=== PATIENT | male | born 1980 | race Caucasian/White ===

== ENCOUNTER 2017-10-01 07:58 | Day surgery (SDC) | payer OTHER ==
[~2017-10-01 07:58] MED LIST: Buffered Lidocaine 0.9% SYRIN* 5 ML/SYR SYRINGE INTRADERM ONE; Dexamethasone IV* 4 MG/ML 1 ML (4 MG) IV SLOW PU ONE; Famotidine TAB* 20 MG PO ONE
[2017-10-01] MEDS ORDERED: Dexamethasone IV* 4 MG/ML 1 ML (4 MG) ONE (08:21)
[2017-10-01] MEDS ORDERED: Famotidine TAB* 20 MG ONE (08:21)
[2017-10-01] MEDS ORDERED: Buffered Lidocaine 0.9% SYRIN* 5 ML/SYR SYRINGE ONE (08:21)
[2017-10-01] MEDS ORDERED: fentaNYL* 50 MCG/ML 2 ML VIAL (100 MCG VIAL) ONE ×3 (10:04→11:15)
[2017-10-01] MEDS ORDERED: Midazolam* 1 MG/ML 2 ML VIAL (2 MG) ONE (10:04)
[2017-10-01] MEDS ORDERED: Succinylcholine* 20 MG/ML 10 ML VIAL ONE (10:36)
[2017-10-01] MEDS ORDERED: Lidocaine 2% PF * 5 ML VIAL ONE (10:36)
[2017-10-01] MEDS ORDERED: Propofol* 10 MG/ML 20 ML BTL IV PUSH ONE (10:36)
[2017-10-01] MEDS ORDERED: Ondansetron INJ* 2 MG/ML VIAL ONE (10:37)
[2017-10-01] MEDS ORDERED: DiMENhydriNATE IV* 50 MG/ML VIAL IV PUSH PRN (10:51)
[2017-10-01] MEDS ORDERED: Naloxone* 0.4 MG/ML 1 ML VIAL IV PRN (10:51)
[2017-10-01] MEDS: fentaNYL* 50 MCG/ML 2 ML VIAL (100 MCG VIAL) IV PRN ×2 (11:17→11:44)
[2017-10-01] MEDS ORDERED: HYDROcodone/ACET. 7.5/325 LIQ* 15 ML UDC ONE ×2 (11:26→12:22)
[2017-10-01 12:31] VITALS: BP 110/85
--- NOTE | 2017-10-01 16:44 | OP ---
DATE OF OPERATION: 10/01/17 [facility] DATE OF : 76. SURGEON: Josue Hodgson MD. AIRPORT OPERATIONS COORDINATOR: None. ANESTHESIA: General. PRE-OP DIAGNOSES: Chronic tonsillitis and recurrent left peritonsillar abscess. POST-OP DIAGNOSES: Chronic tonsillitis and recurrent left peritonsillar abscess. OPERATIVE PROCEDURE: Tonsillectomy. ESTIMATED BLOOD LOSS: Less than 30 cc. SPECIMENS: Right and left tonsils to pathology. INDICATION: This is a 37-year-old male who has had recurrent left- sided peritonsillar abscesses for the past 3 years. The decision was made to bring him to the operating room for tonsillectomy as definitive treatment. DESCRIPTION OF PROCEDURE: On 10/01/17, the patient was brought to the operating room. General anesthesia was induced and an oral endotracheal tube was placed. The table was turned. The patient was draped and the head wrap was applied. A time-out was performed. A McIvor mouth gag was used to facilitate exposure of the oropharynx and it was suspended from the Larry stand. The right tonsil was addressed first. It was grasped with a straight Allis forceps, retracted medially and dissected free of its fossa with the coblation device at a setting of 7 and 3 with minimal bleeding. Once the tonsil was removed, attention was turned to the left side. There was purulent material flowing from the tonsil out of what appeared to be a crypt in the superior pole region, this was cultured. Tonsil was then grasped with a straight Allis forceps, retracted medially and dissected free of its fossa with the coblation device. There was significant pericapsular inflammation and fibrosis without clearly defined capsular plane. There was some bleeding from the left tonsillar fossa, this was controlled with the bipolar function on the coblation device turned up to 5. Once both tonsils were out, the oropharynx was copiously irrigated and small point sources of bleeding from both tonsilar fossas were controlled with bipolar function. The left tonsillar fossa was then explored. There was no evidence of deeper abscess cavity on exam. The abscess appeared to be limited to the tonsil and peritonsillar region. The orogastric tube was then passed into the stomach. The stomach contents were evacuated. Mouth gag was let down for a period of minute again, opened again. There was no evidence of active bleeding. The patient was returned to the care of the anesthesiologist, extubated and delivered to the PACU in the stable condition. [id number]/[facility] #: [id number] [place]
== END 2017-10-01 12:59 | disposition home or self-care (01) ==
LOC: OR 07:58
PROVIDERS: ATTEND Otolaryngology
DX: J35.01 Chronic tonsillitis (principal); J36 Peritonsillar abscess; Z87.891 Personal history of nicotine dependence
CPT/HCPCS: 87070; 87073; 87076; 87077; 87205; 88304; A9270-GY; J0330; J1100; J2250; J2405; J2704; J3010